=== PATIENT | female | born 1980 | race African-American/Black ===

== ENCOUNTER 2018-11-14 08:50 | Inpatient (IN) | payer OTHER ==
[2018-11-14] MEDS ORDERED: AMPICILLIN SODIUM 2 GM VIAL ONE (09:13)
[2018-11-14] MEDS ORDERED: AMPICILLIN SODIUM 2 GM VIAL IVPB ONE (09:45)
[2018-11-14] MEDS: DEXTROSE 5%-LACTATED RINGERS 1,000 ML IV SCH (09:45)
[2018-11-14 10:37] LABS: BASO % 0.4 % (0-2.0); EOS % 0.1 % (0-4.5); HEMATOCRIT 37.4 % (32.4-45.2); HEMOGLOBIN 12.1 GM/dL (10.7-15.3); LYMPH % 7.7 % (8-40); MCH 26.3 pg (25.7-33.7); MCHC 32.4 g/dl (32.0-36.0); MEAN CELL VOLUME 81.2 fl (80-96); MONO % 6.6 % (3.8-10.2); NEUT % 85.2 % (42.8-82.8); PLATELET COUNT 187 K/MM3 (134-434); RDW 16.8 % (11.6-15.6); WHITE BLOOD COUNT 9.9 K/mm3 (4.0-10.0)
--- NOTE | 2018-11-14 10:43 | HP ---
Past Medical History - Admission Chief Complaint: Rupture of membrane History of Present Illness: 38 yo , @ 39 weeks gestation, EDC 11/16/18, presents to L&D c/o rupture of membrane. She had care at another facility; record is available. History Source: Patient Limitations to Obtaining History: No Limitations - Past Medical History ...: 2 ...Para: 0 - Past Surgical History Past Surgical History: Yes: None Hx Myomectomy: No Hx Transabdominal Cerclage: No Home Medications - Allergies Allergies/Adverse Reactions: Allergies Allergy/AdvReac Type Severity Reaction Status Date / Time No Known Allergies Allergy Verified 11/14/18 10:22 - Home Medications Home Medications: Ambulatory Orders Docusate Sodium [Colace] 100 mg PO BID 11/13/18 Ferrous Sulfate 325 mg PO TID 11/13/18 Pnv No.95/Ferrous Fum/Folic AC [ Vitamin Tablet] 1 each PO DAILY Family Disease History - Family Disease History Family History: Unremarkable Review of Systems - Review of Systems Constitutional: reports: No Symptoms Eyes: reports: No Symptoms HENT: reports: No Symptoms Neck: reports: No Symptoms Cardiovascular: reports: No Symptoms Respiratory: reports: No Symptoms Gastrointestinal: reports: No Symptoms Genitourinary: reports: Other (Leakage of fluid) Breasts: reports: No Symptoms Reported Musculoskeletal: reports: No Symptoms Integumentary: reports: No Symptoms Neurological: reports: No Symptoms Endocrine: reports: No Symptoms Hematology/Lymphatic: reports: No Symptoms Psychiatric: reports: No Symptoms Pain Intensity: 4 Physical Exam - Maternity Constitutional: Yes: Well Nourished Eyes: Yes: Conjunctiva Clear HENT: Yes: Atraumatic Neck: Yes: Supple Cardiovascular: Yes: Regular Rate and Rhythm Lungs: Clear to auscultation - Abdominal Exam/OB Number of Fetuses: Single Presentation: Vertex Intensity: Mild/Mod - Physical Exam ...Motor Strength: WNL Psychiatric: Yes: Alert, Oriented Problem List - Problems (1) 39 weeks gestation of Code(s): Z3A.39 - 39 WEEKS GESTATION OF (2) Rupture of membranes with clear amniotic fluid Code(s): EPA6856 - Assessment/Plan 39 weeks gestation Spontaneous rupture of membrane Admit to L&D Analgesia as needed Anticipate
[2018-11-14] MEDS ORDERED: BUTORPHANOL TARTRATE 2 MG/ML VIAL IVPUSH PRN (10:44)
[2018-11-14] MEDS ORDERED: PROMETHAZINE HCL 25 MG/1 ML VIAL IVPB ONE (10:44)
[2018-11-14 10:46] VITALS: BMI 44.9
[2018-11-14 10:55] LABS: INR 0.95 (0.83-1.09); PROTHROMBIN TIME (PATIENT) 11.2 SEC (9.7-13.0)
[2018-11-14 10:57] LABS: ACTIVATED PTT 20.7 SECONDS (25.2-36.5)
[2018-11-14 10:59] LABS: BLOOD UREA NITROGEN 9.4 mg/dL (7-18); CALCIUM 9.5 mg/dL (8.5-10.1); CREATININE 0.7 mg/dL (0.55-1.3); POTASSIUM 3.9 mmol/L (3.5-5.1)
[2018-11-14] MEDS ORDERED: FENTANYL/BUPIVACAINE/NS/PF - PCEA - 50 ML DISP.SYRIN EP ONE (11:00)
[2018-11-14] MEDS ORDERED: NALOXONE HCL 0.4 MG/ML VIAL IVPUSH PRN (11:07)
[2018-11-14] MEDS ORDERED: LIDO 2%/EPI 1:200000 PRESRVFRE (20 ML SDVIAL) ONE (11:08)
[2018-11-14] MEDS ORDERED: BUPIVACAINE HCL/PF 2.5 MG/ML - 30 ML VIAL IJ ONE (11:09)
[2018-11-14] MEDS: FENTANYL/BUPIVACAINE/NS/PF - PCEA - 50 ML DISP.SYRIN EP SCH (11:30)
[2018-11-14] MEDS ORDERED: LIDOCAINE HCL 1% PRESERVATIVE FREE - 30ML VIAL ONE (15:49)
[2018-11-14] MEDS ORDERED: OXYTOCIN 20 UNITS in 0.9% NS 20 UNIT/1,000 ML INFUS.BAG IV ONE (15:49)
--- NOTE | 2018-11-14 16:35 | PN ---
Progress Note (short form) - Note Progress Note: Patient fully dilated and pushing. With every push, she c/o chest pain and shortness of breath. HR : 154 BP : 163/121 Decision made for primary . Consent signed Anesthesia called. Problem List - Problems (1) 39 weeks gestation of Code(s): Z3A.39 - 39 WEEKS GESTATION OF (2) Rupture of membranes with clear amniotic fluid Code(s): DAJ7533 -
[2018-11-14] MEDS ORDERED: CITRIC ACID/SODIUM CITRATE 30 ML UNIT-DOSE CUP PO ONE ×2 (17:00→21:09)
[2018-11-14] MEDS ORDERED: BUPIVACAINE HCL/PF 0.5% (5 MG/ML) 30 ML VIAL IJ ONE (17:27)
[2018-11-14] MEDS ORDERED: SODIUM CHLORIDE 0.9% P/F 10 ML VIAL IJ ONE (17:39)
[2018-11-14] MEDS ORDERED: PHENYLEPHRINE HCL 10 MG/1 ML SINGLE DOSE VIAL ONE (17:42)
[2018-11-14] MEDS ORDERED: ceFAZolin SODIUM 1 GM VIAL ONE (17:45)
[2018-11-14] MEDS ORDERED: OXYTOCIN 10 UNITS/ML VIAL ONE ×2 (17:57→18:29)
[2018-11-14] MEDS ORDERED: morphine SULFATE/PF 0.5 MG/ML (2cc Syringe - QUVA) ONE ×3 (18:01)
[2018-11-14] MEDS ORDERED: METHYLERGONOVINE MALEATE 0.2 MG/1 ML AMP IM PRN (18:28)
--- NOTE | 2018-11-14 18:32 | OP ---
Operative Note - Note: Operative Date: 11/14/18 Pre-Operative Diagnosis: Arrest of descent / NRFHR Operation: Primary Low Transverse Findings: Baby in cephallic presentation. Positive Meconium Post-Operative Diagnosis: Same as Pre-op Surgeon: Tatiana Higuera Loss Prevention And Safety Manager: Lucie Ross Anesthesia: Epidural Specimens Removed: Placenta Estimated Blood Loss (mls): 600 Operative Report Dictated: No
[2018-11-14] MEDS ORDERED: IBUPROFEN 800 MG/8 ML IJ IVPB ONE (21:00)
[2018-11-14] MEDS: IBUPROFEN 800 MG/8 ML IJ IVPB PRN (21:15)
[2018-11-15 07:48] LABS: BASO % 0.2 % (0-2.0); HEMATOCRIT 30.4 % (32.4-45.2); HEMOGLOBIN 9.8 GM/dL (10.7-15.3); LYMPH % 6.7 % (8-40); MCH 26.3 pg (25.7-33.7); MCHC 32.2 g/dl (32.0-36.0); MEAN CELL VOLUME 81.5 fl (80-96); MEAN PLT VOLUME 9.9 fl (7.5-11.1); NEUT % 85.1 % (42.8-82.8); PLATELET COUNT 160 K/MM3 (134-434); RBC 3.73 M/mm3 (3.60-5.2); RDW 17.3 % (11.6-15.6); WHITE BLOOD COUNT 11.2 K/mm3 (4.0-10.0)
[2018-11-15] MEDS: IBUPROFEN 800 MG/8 ML IJ IVPB PRN (08:05)
[2018-11-15] MEDS: FERROUS SO4 325 MG TABLET (FP) PO SCH ×2 (08:05→18:35)
[2018-11-15] MEDS: PRENATAL VITAMINS W/ FOLIC ACID TABLET (FP) PO SCH (09:27)
--- NOTE | 2018-11-15 10:10 | OP ---
DATE OF OPERATION: 11/14/2018 PREOPERATIVE DIAGNOSIS: A 39-week gestation with arrest of descent. POSTOPERATIVE DIAGNOSIS: A 39-week gestation with arrest of descent. PROCEDURE: Primary low transverse section. SURGEON: Tatiana Higuera MD ANESTHESIA: Epidural. ROUTE DRIVER SALESPERSON: ORAL Shaffer COMPLICATIONS: Meconium. ESTIMATED BLOOD LOSS: 600 mL. DESCRIPTION OF PROCEDURE: Patient was taken to the operating room, where epidural anesthesia was found to be adequate. Patient was then prepped and draped in proper sterile fashion. A Pfannenstiel skin incision was made and carried down through the underlying layer of fascia. The fascia was incised in the midline and extended laterally. The superior aspect of the fascial incision was then grasped with the Veronique clamp, elevated, and the rectus muscle dissected off bluntly. Attention was then turned to the inferior aspect of the fascial incision, which in a similar fashion was then grasped with the Veronique clamp, elevated, and the rectus muscle dissected off bluntly. The rectus muscle was then in the midline. The peritoneum was identified and entered sharply with the Metzenbaum scissors. This peritoneal incision was entered with the Metzenbaum scissors. This incision was extended superiorly and inferiorly with good visualization of the bladder. Then, the vesicouterine peritoneum was then grasped with a pickup and entered sharply with the Metzenbaum scissors. This incision was extended laterally, and a bladder flap created digitally. The bladder blade was inserted. The lower uterine segment was incised using a 10-blade. This incision was extended laterally, and the head delivered. Upon delivery of the fetus, copious amount of meconium was noted. The was noted to lack tone. The cord was rapidly clamped, and the was handed to the hospital product specialist for resuscitation. Then, the placenta was removed manually, the uterus exteriorized and cleared of all clots and debris. The uterine incision was repaired using 0 Biosyn in a running locked fashion. The 2nd layer of the same suture was used as a means to provide excellent hemostasis. Then, the pelvis was then completely irrigated. The peritoneum was closed using 2-0 Biosyn, the fascia was reapproximated using 0 Vicryl in a running fashion, and the skin was closed with vero. Patient tolerated the procedure well. Patient was then taken to PACU in stable condition. PATHOLOGY: Placenta. Nyla [id number] MTDD
--- NOTE | 2018-11-15 10:14 | PN ---
Post Progress Note - Subjective Subjective: 38 yo Para 1 status post primary . She's lying in; c/o incision pain. Post Day: 1 Type of Delivery: Primary C/S Vital Signs: Vital Signs Temperature 98.6 F 11/15/18 06:00 Pulse Rate 102 H 11/15/18 06:00 Respiratory Rate 18 11/15/18 08:00 Blood Pressure 123/59 L 11/15/18 06:00 O2 Sat by Pulse Oximetry (%) 99 11/14/18 21:00 Breast Exam: Yes: Soft Uterus: Yes: Fundus @ umbilicus Incision: Yes: Dressing dry and intact Abdomen/GI: Yes: Abdomen soft Lochia: Yes: Rubra Lochia, amount: Small Extremities: Yes: Calves non-tender Activity: Ambulating - Labs Labs: CBC WBC 11.2 K/mm3 (4.0-10.0) H 11/15/18 07:15 RBC 3.73 M/mm3 (3.60-5.2) 11/15/18 07:15 Hgb 9.8 GM/dL (10.7-15.3) L 11/15/18 07:15 Hct 30.4 % (32.4-45.2) L D 11/15/18 07:15 MCV 81.5 fl (80-96) 11/15/18 07:15 MCH 26.3 pg (25.7-33.7) 11/15/18 07:15 MCHC 32.2 g/dl (32.0-36.0) 11/15/18 07:15 RDW 17.3 % (11.6-15.6) H 11/15/18 07:15 Plt Count 160 K/MM3 (134-434) 11/15/18 07:15 MPV 9.9 fl (7.5-11.1) 11/15/18 07:15 Absolute Neuts (auto) 9.5 K/mm3 (1.5-8.0) H 11/15/18 07:15 Neutrophils % 85.1 % (42.8-82.8) H 11/15/18 07:15 Lymphocytes % 6.7 % (8-40) L 11/15/18 07:15 Monocytes % 8.0 % (3.8-10.2) 11/15/18 07:15 Eosinophils % 0.0 % (0-4.5) D 11/15/18 07:15 Basophils % 0.2 % (0-2.0) 11/15/18 07:15 Nucleated RBC % 0 % (0-0) 11/15/18 07:15 Problem List - Problems (1) 39 weeks gestation of Code(s): Z3A.39 - 39 WEEKS GESTATION OF (2) Rupture of membranes with clear amniotic fluid Code(s): [id number] - (3) Status post primary low transverse section Code(s): Z98.891 - HISTORY OF UTERINE SCAR FROM PREVIOUS SURGERY Assessment/Plan Status post primary . Ambulation Analgesia as needed Continue routine post op care
--- NOTE | 2018-11-15 11:45 | PN ---
Progress Note, Physician Chief Complaint: s/p c section under epidural anesthesia History of Present Illness: post op day one with duramorph in the epidural space for post op pain control - Current Medication List Current Medications: Active Medications Bisacodyl (Dulcolax Suppository -) 10 mg RC PRN PRN PRN Reason: CONSTIPATION Butorphanol Tartrate (Butorphanol Tartrate) 2 mg IVPUSH Q4H PRN PRN Reason: PAIN Ferrous Sulfate (Feosol -) 325 mg PO BIDWM [facility] Last Admin: 11/15/18 08:05 Dose: 325 mg Oxytocin/Sodium Chloride (Normal Saline+20 Units Oxytocin -) 20 unit in 1,000 mls @ 125 mls/hr IV ASDIR [facility] Ibuprofen (Motrin -) 600 mg PO Q4H PRN PRN Reason: PAIN LEVEL 1 - 3 Ibuprofen (Caldolor Injection -) 800 mg IVPB Q8H PRN PRN Reason: PAIN LEVEL 4 - 6 Last Admin: 11/15/18 08:05 Dose: 800 mg Methylergonovine Maleate (Methergine Injection -) 0.2 mg IM Q4H PRN PRN Reason: Excessive Bleeding (L&D) Naloxone HCl (Narcan -) 0.4 mg IVPUSH PRN PRN PRN Reason: Sedation Oxycodone HCl (Roxicodone -) 5 mg PO Q4H PRN PRN Reason: PAIN LEVEL 7 - 10 Multivit/Folic Acid/Iron ( Vitamins (Sjr) -) 1 tab PO DAILY [facility] Last Admin: 11/15/18 09:27 Dose: 1 tab Simethicone (Mylicon -) 80 mg PO Q4H PRN PRN Reason: GAS - Objective Vital Signs: Vital Signs Temperature 98.6 F 11/15/18 06:00 Pulse Rate 102 H 11/15/18 06:00 Respiratory Rate 18 11/15/18 11:00 Blood Pressure 123/59 L 11/15/18 06:00 O2 Sat by Pulse Oximetry (%) 99 11/14/18 21:00 Constitutional: Yes: Well Nourished Cardiovascular: Yes: WNL Respiratory: Yes: WNL Gastrointestinal: Yes: WNL Labs: CBC, BMP 11/15/18 07:15 11/14/18 10:28 INR, PTT INR 0.95 (0.83-1.09) 11/14/18 10:28 Assessment/Plan No adverse effects of anesthetic, pain controlled, no nausea or vomiting, dept of anesthesiology will sign off care at this time
[2018-11-15] MEDS ORDERED: BISACODYL 10 MG SUPP.RECT RC PRN (18:28)
[2018-11-15] MEDS: oxyCODONE HCL 5 MG TABLET PO PRN (21:49)
[2018-11-15] MEDS: SIMETHICONE 80 MG TAB.CHEW (FP) PO PRN (21:49)
[2018-11-15] MEDS: IBUPROFEN 600 MG TABLET (FP) PO PRN (21:50)
[2018-11-16] MEDS: OXYTOCIN 20 UNITS in 0.9% NS 20 UNIT/1,000 ML INFUS.BAG IV SCH ×2 (01:59→02:00)
[2018-11-16] MEDS: DEXTROSE 5%-LACTATED RINGERS 1,000 ML IV SCH (02:04)
[2018-11-16] MEDS: FENTANYL/BUPIVACAINE/NS/PF - PCEA - 50 ML DISP.SYRIN EP SCH (02:04)
[2018-11-16] MEDS: FERROUS SO4 325 MG TABLET (FP) PO SCH ×2 (07:41→17:08)
[2018-11-16] MEDS: IBUPROFEN 600 MG TABLET (FP) PO PRN ×3 (07:53→23:32)
[2018-11-16] MEDS: oxyCODONE HCL 5 MG TABLET PO PRN ×3 (07:54→23:31)
--- NOTE | 2018-11-16 10:11 | PN ---
Post Progress Note - Subjective Subjective: 38 yo Para 1 status post primary , seen and evaluated. Doing well. Post Day: 2 Type of Delivery: Primary C/S Vital Signs: Vital Signs Temperature 100.3 F H 11/15/18 21:43 Pulse Rate 119 H 11/15/18 21:43 Respiratory Rate 18 11/15/18 21:43 Blood Pressure 114/78 11/15/18 21:43 O2 Sat by Pulse Oximetry (%) 99 11/14/18 21:00 Breast Exam: Yes: Soft Uterus: Yes: Fundus Firm Incision: Yes: Dressing dry and intact Abdomen/GI: Yes: Abdomen soft, Tolerating PO Lochia: Yes: Rubra Lochia, amount: Small Extremities: Yes: Calves non-tender Activity: Ambulating - Labs Labs: CBC WBC 11.2 K/mm3 (4.0-10.0) H 11/15/18 07:15 RBC 3.73 M/mm3 (3.60-5.2) 11/15/18 07:15 Hgb 9.8 GM/dL (10.7-15.3) L 11/15/18 07:15 Hct 30.4 % (32.4-45.2) L D 11/15/18 07:15 MCV 81.5 fl (80-96) 11/15/18 07:15 MCH 26.3 pg (25.7-33.7) 11/15/18 07:15 MCHC 32.2 g/dl (32.0-36.0) 11/15/18 07:15 RDW 17.3 % (11.6-15.6) H 11/15/18 07:15 Plt Count 160 K/MM3 (134-434) 11/15/18 07:15 MPV 9.9 fl (7.5-11.1) 11/15/18 07:15 Absolute Neuts (auto) 9.5 K/mm3 (1.5-8.0) H 11/15/18 07:15 Neutrophils % 85.1 % (42.8-82.8) H 11/15/18 07:15 Lymphocytes % 6.7 % (8-40) L 11/15/18 07:15 Monocytes % 8.0 % (3.8-10.2) 11/15/18 07:15 Eosinophils % 0.0 % (0-4.5) D 11/15/18 07:15 Basophils % 0.2 % (0-2.0) 11/15/18 07:15 Nucleated RBC % 0 % (0-0) 11/15/18 07:15 Problem List - Problems (1) 39 weeks gestation of Code(s): Z3A.39 - 39 WEEKS GESTATION OF (2) Rupture of membranes with clear amniotic fluid Code(s): [id number] - (3) Status post primary low transverse section Code(s): Z98.891 - HISTORY OF UTERINE SCAR FROM PREVIOUS SURGERY Assessment/Plan Status post primary . Ambulation Analgesia as needed Continue routine post op care
[2018-11-16] MEDS: PRENATAL VITAMINS W/ FOLIC ACID TABLET (FP) PO SCH (10:35)
[2018-11-16] MEDS: SIMETHICONE 80 MG TAB.CHEW (FP) PO PRN ×2 (18:50→23:31)
--- NOTE | 2018-11-17 05:37 | DS ---
Physical Exam-BUS AND RAIL OPERATOR Vital Signs: Vital Signs Temperature 98.8 F 11/16/18 20:39 Pulse Rate 112 H 11/16/18 20:39 Respiratory Rate 18 11/16/18 20:39 Blood Pressure 124/73 11/16/18 20:39 O2 Sat by Pulse Oximetry (%) 99 11/14/18 21:00 Constitutional: Yes: Well Nourished Eyes: Yes: Conjunctiva Clear HENT: Yes: Atraumatic Neck: Yes: Supple Cardiovascular: Yes: Regular Rate and Rhythm Respiratory: Yes: Regular Gastrointestinal: Yes: Normal Bowel Sounds ...Rectal Exam: Yes: WNL Renal/: Yes: WNL Pelvis: Yes: WNL External Genitalia: Yes: Normal Vaginal Exam: Yes: Normal Cervix: Yes: Normal Uterus: Yes: Normal ....Post : Yes: Uterus firm Breast(s): Yes: WNL Musculoskeletal: Yes: WNL Extremities: Yes: WNL Integumentary: Yes: WNL Wound/Incision: Yes: Well Approximated, [place] Intact Neurological: Yes: Alert, Oriented ...Motor Strength: WNL Psychiatric: Yes: Alert, Oriented Labs: CBC, BMP 11/15/18 07:15 11/14/18 10:28 Delivery - Delivery Type of Anesthesia: Epidural Episiotomy/Laceration: None EBL (cc): 600 Delivery, Single - Stages of Labor Date 1st Stage Initiatied: 11/14/18 Time 1st Stage Initiated: 01:00 Date 2nd Stage Initiated: 11/14/18 Time 2nd Stage Initiated: 16:00 Date of Delivery: 11/14/18 Time of Delivery: 18:01 Time Placenta Delivered: 18:02 - Condition of Infant Grinder Lap/Blackjack Pit Boss Present: Yes Name: Martín Kidd Infant Gender: Male Weight: 8 lb 8 oz Position: Left, OA Total Hours ROM (Hrs/Mins): 19hr/2min - 1 Minute Total Score: 2 5 Minutes Total Score: 4 10 Minutes Total Score: 5 - Feeding Plan Initial Plan: Exclusive throughout hospitalization Discharge Summary Reason For Visit: LABOR Current Active Problems 39 weeks gestation of (Acute) Rupture of membranes with clear amniotic fluid (Acute) Status post primary low transverse section (Acute) Procedures: Principal: Primary Low Transverse Hospital Course: Routine post op care Condition: Good - Instructions Diet, Activity, Other Instructions: Regular diet No driving, no lifting x 4 weeks F/U in clinic in 1 week Disposition: HOME - Home Medications Comprehensive Discharge Medication List: Ambulatory Orders Docusate Sodium [Colace] 100 mg PO BID 11/13/18 Ferrous Sulfate 325 mg PO TID 11/13/18 Pnv No.95/Ferrous Fum/Folic AC [ Vitamin Tablet] 1 each PO DAILY
[2018-11-17 08:01] LABS: BASO % 0.7 % (0-2.0); EOS % 1.3 % (0-4.5); HEMATOCRIT 29.3 % (32.4-45.2); HEMOGLOBIN 9.6 GM/dL (10.7-15.3); LYMPH % 11.7 % (8-40); MCH 26.4 pg (25.7-33.7); MCHC 32.7 g/dl (32.0-36.0); MEAN CELL VOLUME 80.8 fl (80-96); MEAN PLT VOLUME 9.4 fl (7.5-11.1); NEUT % 81.3 % (42.8-82.8); PLATELET COUNT 196 K/MM3 (134-434); RBC 3.62 M/mm3 (3.60-5.2); RDW 17.1 % (11.6-15.6)
[2018-11-17] MEDS: SIMETHICONE 80 MG TAB.CHEW (FP) PO PRN ×2 (08:06→11:49)
[2018-11-17] MEDS: oxyCODONE HCL 5 MG TABLET PO PRN (08:06)
[2018-11-17] MEDS: FERROUS SO4 325 MG TABLET (FP) PO SCH (08:08)
[2018-11-17] MEDS: IBUPROFEN 600 MG TABLET (FP) PO PRN ×2 (08:09→11:48)
[2018-11-17] MEDS: PRENATAL VITAMINS W/ FOLIC ACID TABLET (FP) PO SCH (09:59)
[2018-11-17 11:06] VITALS: BP 135/69; PULSE 89; TEMP 99.1
[2018-11-17 11:34] LABS: ANISOCYTOSIS 1+; MACROCYTOSIS 0; PLATELET ESTIMATE NORMAL
--- NOTE | 2018-11-17 16:09 | SURG ---
Surgery Print Binding Worker Note Print Binding Worker: Lucie Rsos PA-C Date of Service: 11/14/18 Diagnosis: Arrest of descent / NRFHR Procedure: Primary Low Transverse I was present for the entirety of the operative procedure. For further detail, please refer to operative report.
--- NOTE | 2018-11-18 15:38 | PATH ---
Surgical Pathology Report Patient Name: EJSSIE SILVA Med. Rec. #: [id number] /Age/Gender: 1980 (Age: 38) / F Account: [id number] Location: [facility] OBS/BUSINESS PROCESS EXPERT Taken: 11/14/2018 Received: 11/17/2018 Reported: 11/18/2018 Physicians: Tatiana Higuera M.D. Specimen(s) Received PLACENTA Clinical History , 39.5 weeks Final Diagnosis PLACENTA, SECTION: 462 G THIRD TRIMESTER PLACENTA WITH SEVERE ACUTE CHORIOAMNIONITIS, MECONIUM LADEN MACROPHAGES, AND TRIVASCULAR UMBILICAL CORD WITH PANVASCULITIS AND FUNISITIS. Electronically Signed Vani Vásquez M.D. Gross Description The specimen is received fresh labeled placenta and is a 462 gram, 17.0 x 15.0 x 2.7 cm. placenta with attached membranes and umbilical cord. The attached membranes are hassan green, meconium stained, translucent with focal opacities and insert marginally. The umbilical cord measures 41 cm. in length and averages 1 cm. in diameter. The cord inserts eccentrically, 2.5 cm. to the nearest margin. No true knots or strictures are identified. Cut surface of the umbilical cord reveals 3 vessels. The surface is galeano green, meconium stained with minimal fibrin deposition and appropriate caliber vessels. The maternal surface is red-brown with focal defects. Sectioning reveals red-brown, spongy parenchyma. No lesions are identified. Geospatial Specialist sections are submitted in three cassettes as follows: 1- membrane rolls and umbilical cord; 2-3- full thickness sections of placenta. /11/17/2018 [facility]11/17/2018
== END 2018-11-17 12:10 | disposition home or self-care (01) | DRG 788 ==
LOC: JDEL 08:50 → JLDR 09:10 → J3W 21:30
PROVIDERS: ADMIT Obstetrics & Gynecology; ATTEND Obstetrics & Gynecology
PROC: 10D00Z1 Extraction of Products of Conception, Low, Open Approach (ICD-10-PCS; principal; 2018-11-14)
PROC: 3E0334Z Introduction of Serum, Toxoid and Vaccine into Peripheral Vein, Percutaneous Approach (ICD-10-PCS; 2018-11-15)
DX: O62.1 Secondary uterine inertia (principal); Z3A.39 39 weeks gestation of pregnancy; Z29.13 Encounter for prophylactic Rho(D) immune globulin; Z37.0 Single live birth
CPT/HCPCS: 36415; 36600; 80048; 82803; 85025; 85461; 85610; 85730; 86593; 86850; 86870; 86900; 86901; 86902; 86999; 88307-TC